=== PATIENT | female | born 1950 | race African-American/Black ===

== ENCOUNTER → 2018-10-28 | Outpatient (CLI) | payer MEDICARE ==
--- NOTE | 2018-10-28 12:22 | Diagnostic Imaging Report ---
EXAMINATION: PA and lateral views of the chest. COMPARISON: None CLINICAL HISTORY: Cough DISCUSSION: The lungs are well-inflated. No focal airspace consolidation, pleural effusion, or pneumothorax. Borderline enlargement of the cardiac silhouette with tortuosity of the thoracic aorta. No overt pulmonary edema. No acute osseous abnormalities. Degenerative changes of the shoulder girdles right greater than left. Right-sided cervical rib is incidentally noted. Degenerative disc changes of the thoracolumbar spine. IMPRESSION: Borderline enlargement of the cardiac silhouette without vascular decompensation. Signed by: Dr. Lawrence Hernandez M.D. on 10/28/2018 12:18 PM
== END ==
LOC: RAD 11:45
PROVIDERS: ATTEND Family Medicine
DX: R05 Cough (principal)
CPT/HCPCS: 71046